=== PATIENT | female | born 1985 | race American Indian/Alaskan Native ===

== ENCOUNTER 2018-12-31 08:10 | Emergency (ER) | payer OTHER ==
[2018-12-31 08:18] VITALS: BP 156/89
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
== END 2018-12-31 09:31 | disposition home or self-care (01) ==
LOC: ED 08:10
DX: S39.012A Strain of muscle, fascia and tendon of lower back, initial encounter (principal); F43.10 Post-traumatic stress disorder, unspecified; Z91.018 Allergy to other foods; V49.49XA Driver injured in collision with other motor vehicles in traffic accident, initial encounter; Y93.89 Activity, other specified; Y92.410 Unspecified street and highway as the place of occurrence of the external cause; Y99.8 Other external cause status